=== PATIENT | female | born 1990 | race Caucasian/White ===

== ENCOUNTER 2019-06-29 18:26 | Emergency (ER) | payer MEDICAID ==
[~2019-06-29] VITALS: Ht 170.2 cm; Wt 88.9 kg
[2019-06-29 18:31] VITALS: BP 142/84
--- NOTE | 2019-06-29 18:38 | NUR ---
Patient ambulated to bed 3 with family. RN evaluating patient at bedside.
--- NOTE | 2019-06-29 18:51 | NUR ---
PT PRESENTS TO ED WITH COMPLAINTS OF RT FLANK/BACK PAIN, HESISTENCY AND FREQUENCY. STATES URINARY DISCOMFORT IS MINIMAL URINE CUP PROVIDED FOR SPECIMEN COLLECTION. URINE DIP AND PREG DONE AND ON CHART. PREP FOR ERMD MSE. COMFORT MEASURES AND SUPPORITIVE CARE INITIATED. FAMILY MEMBER AT BS.
--- NOTE | 2019-06-29 19:08 | NUR ---
recieved report from cindy patterson. will cont care at this time.
[2019-06-29 19:09] LABS: APPEARANCE,URINE CLEAR (CLEAR); BILIRUBIN,URINE 1+ (NEGATIVE); BLOOD, URINE TRACE-I (NEGATIVE); COLOR,URINE YELLOW (YELLOW); LEUKOCYTE ESTERASE ,URINE 2+ (NEGATIVE); NITRITE, URINE NEGATIVE (NEGATIVE); UGLUCOSE NEGATIVE (NEGATIVE)
[2019-06-29] MEDS ORDERED: KETOROLAC 60 MG/2 ML VIAL IM ONE (19:20)
[2019-06-29] MEDS ORDERED: cefTRIAXone 1,000 MG in LIDOCAINE MPF 1% 2.1 ML IM ONE (19:35)
[2019-06-29] MEDS ORDERED: cefTRIAXone 1,000 MG VIAL ONE (19:37)
[2019-06-29] MEDS ORDERED: LIDOCAINE MPF 1% 5 ML ONE (19:37)
[2019-06-29 19:39] LABS: RBC,URINE 0-5 /HPF (0-5); WBC,URINE 20-60 /HPF (0-5)
[2019-06-29 20:16] VITALS: BP 142/84
--- NOTE | 2019-06-29 20:16 | NUR ---
Patient discharged with v/s stable. Written and verbal after care instructions given and explained. Patient alert, oriented and verbalized understanding of instructions. Ambulatory with steady gait. All questions addressed prior to discharge. ID band removed. Patient advised to follow up with PMD. Rx of ZOFRAN, MOTRIN, AND BACTRIM given. Patient educated on indication of medication including possible reaction and side effects. Opportunity to ask questions provided and answered.
== END 2019-06-29 20:16 | disposition home or self-care (01) ==
LOC: MED 18:26
DX: N12 Tubulo-interstitial nephritis, not specified as acute or chronic (principal); Z85.9 Personal history of malignant neoplasm, unspecified
CPT/HCPCS: 81001; 81025; 87086; 87186; 96372; 99283; J0696; J1885; J2001; 81002